=== PATIENT | male | born 1975 | race Caucasian/White ===

== ENCOUNTER 2016-11-27 12:51 | Emergency (ER) | payer OTHER ==
[~2016-11-27] VITALS: Ht 172.7 cm; Wt 64.9 kg
--- NOTE | 2016-11-27 13:22 | ED GI/GU/ABDOMINAL COMPLAINT ---
History of Present Illness General Chief Complaint: Abdominal Pain/Flank Pain Stated Complaint: ABD PAIN Source: patient, old records Exam Limitations: no limitations Vital Signs & Intake/Output Vital Signs & Intake/Output Vital Signs Date Time Temp Pulse Resp B/P Pulse O2 O2 Flow FiO2 Ox Delivery Rate 11/27 1501 96.8 97 16 116/63 99 Room Air 11/27 1255 97.2 102 18 137/89 99 Room Air ED Intake and Output 11/28 0000 11/27 1200 Intake Total 0 Output Total Balance 0 Intake, Oral 0 Patient 143 lb Weight Allergies Coded Allergies: No Known Allergies (11/27/16) Reconcile Medications No Known Home Medications Triage Note: 41 Y/O MALE C/O PAIN IN R GROIN SINCE YESTERDAY; WOKE TODAY WITH SWELLING TO R TESTICLE. STATES PAIN CURRENTLY 3/ BUT WAS MUCH WORSE THIS AM. DENIES N/V/D. DENIES URINARY SYMPTOMS. AFEBRILE. Triage Nurses Notes Reviewed? yes Onset: Abrupt Duration: day(s): (2), intermittent Timing: recent history Quality/Severity: aching, sharpness, severe Severity Numbers: 10 Location: scrotal Radiation: groin Activities at Onset: none Prior Abdominal Problems: none No Modifying Factors: none Associated Symptoms: denies HPI: 41-year-old male with no significant past medical history presents emergency room complaining of 2 day history of severe 10 out of 10 right testicle pain and swelling. He states that earlier in the week he and his friends were horsing around and hitting each other in the groins. The patient states that he was hit in his right testicle at that time and it was sore however the symptoms began 2 days ago there is no other new injury or trauma. He denies any difficulty with urination he denies any rashes or bruises to his skin. The pain and swelling are intermittent worse in the morning and better as the day goes on. He took ibuprofen this morning with improvement at 7 AM. The patient is sexually active no new partners no history of sexual transmitted disease. No abdominal pain the pain radiates from his scrotum into his groin. No other nausea vomiting diarrhea fever or chills. no recent heavy lifting, no hernia. (AMAN MENDEZ,DIEGO) Past History Travel History Traveled to [place] past 21 day No Medical History Any Pertinent Medical History? none Neurological: NONE EENT: NONE Cardiovascular: NONE Respiratory: NONE Gastrointestinal: NONE Hepatic: NONE Renal: NONE Musculoskeletal: NONE Psychiatric: NONE Endocrine: NONE Blood Disorders: NONE Cancer(s): NONE [employer]ER/Reproductive: NONE Surgical History Surgical History: none Psychosocial History What is your primary language Sierra Leonean Tobacco Use: Current Daily Use Daily Tobacco Use Amount/Type: => 5 Cigarettes daily Family History Hx Contributory? No (DIEGO JEFFERSON) Review of Systems Review of Systems Constitutional: Reports: see HPI. All Other Systems: Reviewed and Negative Comments Review of systems: See HPI, All other systems negative. Constitutional, no chills no fever, no malaise HEENT: No visual changes no sore throat no congestion, no ear pain Cardiovascular: No chest pain , no palpitation , Skin, no jaundice no rashes, no change in skin Respiratory: No dyspnea no cough no sputum GI: No nausea no vomiting, no diarrhea : No dysuria Muscle skeletal: No joint pain, no joint swelling, no back pain, no neck pain, Neurologic: No numbness no headache Psych: No stress Heme/endocrine: No bruising no bleeding Immunology: No lymphadenopathy (DIEGO JEFFERSON) Physical Exam Physical Exam General Appearance: well developed/nourished, no apparent distress, alert Gastrointestinal: normal bowel sounds, soft, non-tender, no organomegaly, NO HERNIA Comments: Well-developed well-nourished person in no acute distress HEENT: Normal EENT exam; PERRL, EOMI, HEAD is atraumatic. moist mucous membranes. Neck: Supple, normal range of motion Back: Nontender, no CVA tenderness. Full range of motion Cardiovascular: Regular rate and rhythms no murmurs rubs Respiratory: No respiratory distress. Patient speaking in full complete sentences. Breath sounds clear to auscultation bilaterally: NO W/R/R Abdomen: Soft, nontender nondistended, no appreciable organomegaly. Normal bowel sounds. No rebound/guarding, NO hernia Male : Normal external genitalia, right-sided scrotal swelling there is no overlying skin changes erythema warmth no vesicles, normal cremaster reflex, neg phrens sign, No lesions/discharge. . Extremity: No edema, full range of motion of extremities, Neuro: Alert oriented x3, motor sensory normal, There were no obvious focal neurologic abnormalities. Skin: No appreciable rash on exposed skin, skin is warm and dry. Psych: Mood and affect is normal, memory and judgment is normal. Core Measures ACS in differential dx? No Severe Sepsis Present: No Septic Shock Present: No (AMAN MENDEZ,DIEGO) Progress Differential Diagnosis: epididymitis, gastritis, hernia, inflamm bowel dis, STD, testicular torsion, ureterolithiasis, urinary retention, urethritis, UTI/pyelo, malignancy Plan of Care: Orders Procedure Date/time Status Add-on Test (ER Only) 11/27 1510 Active CULTURE,URINE 11/27 1413 Active COMPREHENSIVE METABOLIC PANEL 11/27 1326 Complete CBC WITHOUT DIFFERENTIAL 11/27 1326 Complete URINALYSIS 11/27 1257 Complete Laboratory Tests 11/27/16 1413: Urinalysis LIGHT H, Urine Color YEL, Urine Clarity HAZY H, Urine pH 6.0, Ur Specific [place] >= 1.030, Urine Protein TRACE H, Urine Ketones 15 H, Urine Nitrite NEG, Urine Bilirubin NEG@ICTO, Urine Urobilinogen 1.0, Ur Leukocyte Esterase SMALL H, Ur Microscopic SEDIMENT EXAMINED, Urine RBC 1-3, Urine WBC 25 -50 H, Ur Epithelial Cells RARE, Urine Bacteria FEW H, Urine Mucus MOD H, Urine Hemoglobin NEG, Urine Glucose NEG 11/27/16 1411: Anion Gap 9, Estimated GFR > 60, BUN/Creatinine Ratio 16.7, Glucose 98, Calcium 9.6, Total Bilirubin 0.6, AST 23, ALT 44, Alkaline Phosphatase 101, Total Protein 6.8, Albumin 3.8, Globulin 3.0, Albumin/Globulin Ratio 1.3, CBC w Diff NO MAN DIFF REQ, RBC 5.07, MCV 88.4, MCH 29.6, RDW 13.1, MPV 8.3, Gran % 79.5 H , Lymphocytes % 11.2 L, Monocytes % 7.4, Eosinophils % 0.7, Basophils % 1.2, Absolute Granulocytes 11.1 H, Absolute Lymphocytes 1.6, Absolute Monocytes 1.0 H, Absolute Eosinophils 0.1, Absolute Basophils 0.2, PUBS MCHC 33.5 Microbiology 11/27 1413 URINE ROUT: Urine Culture - RES labs ordered, old records reviewed us ordered from triage Case discussed with -discussed the patient leave his lab results ultrasound findings the patient has no urinary symptoms no discharge discussed the need for close follow-up with primary care and urology dr chadwick. advised briefs With support NSAIDs ice, advised close follow-up with primary care, return anytime sooner however if his symptoms worsen. i answered all his questions he feels comfortable with this plan cleared for discharge (DIEGO JEFFERSON) Diagnostic Imaging: Viewed by Me: Ultrasound. Discussed w/RAD: Ultrasound. Radiology Impression: PATIENT: HANH MENDOZA PRESENT AGE: 41 PATIENT ACCOUNT NO: [id number] : 77 LOCATION: [facility] ORDERING PHYSICIAN: PAULINO BARRY MD SERVICE DATE: 11/27/16 EXAM TYPE: US - US- TESTICULAR EXAMINATION: US SCROTUM CLINICAL INFORMATION: Right groin pain and right testicular swelling with onset this a.m. COMPARISON: None. TECHNIQUE: A sonogram of the scrotum was performed assessing lofton-scale appearance and color Doppler flow. FINDINGS: Mild soft tissue edema is seen in the scrotum. RIGHT: Right testicle measures 4.3 x 2.7 x 2.9 cm, volume 23.9 mL. Parenchymal echotexture is normal. No focal testicular parenchymal lesions are visualized. Normal symmetric intratesticular flow is visualized. Right epididymal head is normal in size. Small right hydrocele is seen. No varicocele is seen. LEFT: Left testicle measures 4.3 x 2.7 x 3.4 cm, volume 28.0 mL. Parenchymal echotexture is normal. No focal testicular parenchymal lesions are visualized. Normal symmetric intratesticular flow is visualized. Left epididymal head is normal in size. Small left-sided hydrocele is seen. No varicocele is seen. IMPRESSION: 1. Mild soft tissue edema in the scrotum. 2. Testicles and epididymides normal. No evidence of epididymoorchitis. 3. Small bilateral hydroceles. DICTATED BY: CHERYL BLACKBURN MD DATE/TIME DICTATED:11/27/161432 TRUCKSMITH:OLYA DATE /TIME TRANSCRIBED:11/27/161432 CONFIDENTIAL, DO NOT COPY WITHOUT APPROPRIATE AUTHORIZATION. <Electronically signed in Other Vendor System> SIGNED BY: CHERYL BLACKBURN MD 11/27/16 1442 Initial ED EKG: none (DIEGO JEFFERSON) Departure Departure Time of Disposition: 1524 Disposition: HOME OR SELF CARE Condition: Stable Clinical Impression Primary Impression: Edema of scrotum Secondary Impressions: Hydrocele Referrals: DAVID BUTLER,LATRICE ANGELES MD PATIENT HAS NO PRIMARY CARE DR (PCP/Family) Additional Instructions: follow up with primary care physician dr andrews as wel as urologist dr genao. rest, ice, tylenol or motrin for pain as needed. wear briefs with support, return to the ER with any concerns at anytime sooner. Departure Forms: Customer Survey General Discharge Information Prescriptions: Current Visit Scripts No Known Home Medications (DIEGO JEFFERSON) PA/EMERGENCY SPILL RESPONSE TECHNICIAN Co-Sign Statement Statement: ED Attending supervision documentation- [] I saw and evaluated the patient. I have also reviewed all the pertinent lab results and diagnostic results. I agree with the findings and the plan of care as documented in the PA's/EMERGENCY SPILL RESPONSE TECHNICIAN's documentation. [X] I have reviewed the ED Record and agree with the PA's/EMERGENCY SPILL RESPONSE TECHNICIAN's documentation. [] Additions or exceptions (if any) to the PAs/EMERGENCY SPILL RESPONSE TECHNICIAN's note and plan are summarized below: [] (ASHA BOTELLO,PAULINO)
[2016-11-27 14:17] LABS: ABSOLUTE BASOPHIL COUNT 0.2 /CUMM (0.0-0.2); ABSOLUTE EOSINOPHIL COUNT 0.1 /CUMM (0.0-0.7); ABSOLUTE GRANULOCYTE CT 11.1 /CUMM (1.4-6.5); ABSOLUTE LYMPH COUNT 1.6 /CUMM (1.2-3.4); BASOPHIL % 1.2 % (0.0-2.0); EOSINOPHIL % 0.7 % (0-5); GRANULOCYTE % 79.5 % (42.2-75.2); HEMATOCRIT 44.8 % (42-52); MEAN CORPUSCULAR HGB 29.6 PG (27.0-31.0); MEAN CORPUSCULAR HGB CONC 33.5 G/DL (33.0-37.0); MEAN CORPUSCULAR VOLUME 88.4 FL (80.0-94.0); MEAN PLATELET VOLUME 8.3 FL (7.4-10.4); PLATELET COUNT 252 /CUMM (130-400); RBC DISTRIBUTION WIDTH 13.1 % (11.5-14.5); RED BLOOD CELL CT 5.07 /CUMM (4.70-6.10); WHITE BLOOD CELL COUNT 13.9 /CUMM (4.8-10.8)
--- NOTE | 2016-11-27 14:42 | ULTRASOUND REPORT ---
EXAMINATION: US SCROTUM CLINICAL INFORMATION: Right groin pain and right testicular swelling with onset this a.m. COMPARISON: None. TECHNIQUE: A sonogram of the scrotum was performed assessing lofton-scale appearance and color Doppler flow. FINDINGS: Mild soft tissue edema is seen in the scrotum. RIGHT: Right testicle measures 4.3 x 2.7 x 2.9 cm, volume 23.9 mL. Parenchymal echotexture is normal. No focal testicular parenchymal lesions are visualized. Normal symmetric intratesticular flow is visualized. Right epididymal head is normal in size. Small right hydrocele is seen. No varicocele is seen. LEFT: Left testicle measures 4.3 x 2.7 x 3.4 cm, volume 28.0 mL. Parenchymal echotexture is normal. No focal testicular parenchymal lesions are visualized. Normal symmetric intratesticular flow is visualized. Left epididymal head is normal in size. Small left-sided hydrocele is seen. No varicocele is seen. IMPRESSION: 1. Mild soft tissue edema in the scrotum. 2. Testicles and epididymides normal. No evidence of epididymoorchitis. 3. Small bilateral hydroceles.
== END 2016-11-27 15:28 ==
LOC: ERH 12:51
PROVIDERS: Physician Assistant Medical
DX: N50.89 Other specified disorders of the male genital organs (principal); N43.3 Hydrocele, unspecified
CPT/HCPCS: 81001; 87086